=== PATIENT | male | born 1995 | race African-American/Black ===

== ENCOUNTER 2021-06-14 11:01 | Emergency (ER) | payer OTHER ==
[2021-06-14 11:30] VITALS: BP 115/76; PULSE 80; TEMP 97.8; BMI 20.3
== END 2021-06-14 12:16 | disposition home or self-care (01) ==
LOC: JERFT 11:01
DX: L30.9 Dermatitis, unspecified (principal)
CPT/HCPCS: 99283-25

== ENCOUNTER 2022-03-05 17:42 | Emergency (ER) | payer SELFPAY ==
[2022-03-05 17:54] VITALS: BP 104/66; PULSE 86; TEMP 97.9; BMI 20.3
[2022-03-05 18:51] LABS: URINE APPEARANCE CLEAR; URINE BILIRUBIN NEGATIVE (NEGATIVE); URINE COLOR YELLOW; URINE GLUCOSE (UA) NEGATIVE (NEGATIVE); URINE KETONE NEGATIVE (NEGATIVE); URINE LEUK ESTERASE NEGATIVE (NEGATIVE); URINE NITRITE NEGATIVE (NEGATIVE); URINE PROTEIN NEGATIVE (NEGATIVE)
[2022-03-05] MEDS ORDERED: KETOROLAC TROMETHAMINE 30 MG/1 ML VIAL IM ONE (19:45)
[2022-03-05] MEDS ORDERED: KETOROLAC TROMETHAMINE 30 MG/1 ML VIAL ONE (19:46)
== END 2022-03-05 20:24 | disposition home or self-care (01) ==
LOC: JERFT 17:42
PROC: 3E023GC Introduction of Other Therapeutic Substance into Muscle, Percutaneous Approach (ICD-10-PCS; principal; 2022-03-05)
DX: I86.1 Scrotal varices (principal)
CPT/HCPCS: 36415; 76870-TC; 81003; 87086; 87491; 87591; 99284-25

== ENCOUNTER 2022-10-25 08:54 | Emergency (ER) | payer SELFPAY ==
[2022-10-25 09:24] VITALS: BP 116/78; PULSE 94; RESP 16; TEMP 99.7; BMI 18.3
== END 2022-10-25 10:03 | disposition home or self-care (01) ==
LOC: JER 08:54
DX: J09.X2 Influenza due to identified novel influenza A virus with other respiratory manifestations (principal); R05.1 Acute cough; M79.10 Myalgia, unspecified site
CPT/HCPCS: 0241U-QW; 99283-25